=== PATIENT | female | born 1955 | race Caucasian/White ===

== ENCOUNTER → 2017-04-29 | Outpatient (CLI) | payer OTHER | LOC: CIMAGING 11:06 | PROVIDERS: ATTEND Family Medicine | DX: Z12.31 Encounter for screening mammogram for malignant neoplasm of breast (principal) | CPT/HCPCS: G0202 ==

== ENCOUNTER 2017-05-19 10:53 | Emergency (ER) | payer OTHER ==
[2017-05-19 11:14] VITALS: BP 141/72; PULSE 83; RESP 18; TEMP 98.2; O2SAT 94
--- NOTE | 2017-05-19 11:30 | EDPHY ---
H & P Time Seen by Provider: 05/19/17 11:05 HPI/ROS: CHIEF COMPLAINT: Left rib pain History by patient HISTORY OF PRESENT ILLNESS: 62-year-old woman with a history of fibromyalgia presents complaining of pain isolated to her left lower ribcage which she describes as intermittent and severe. It has been going on for at least 3 months and she saw her primary care physician for it 6 weeks ago was diagnosed with musculoskeletal pain. She returned today because pain seemed worse last night she had trouble sleeping. She took ibuprofen without relief. She says it hurts worse to lay on that left side and better when she gets up and moves around. She says sometimes she feels like it radiates down her left leg and causes some numbness and tingling in that left leg. She is not currently having the symptoms. It is not associated with any fever, chills, nausea or vomiting. She has been eating normally and having normal bowel movements in the pain is not related to bowel movements. She denies any urinary symptoms. The pain tends to be worse at night when she is lying still. It feels different than her fibromyalgia which she describes as pain all over and severe fatigue. She does note that she has been recently helping her father and mom movement although she has not been lifting heavy boxes she is moving lots of things around twisting side to side frequently. She is worried that it could be related to right ovarian cancer or something wrong with her spleen. REVIEW OF SYSTEMS: As in HPI, and all other systems reviewed and are negative Smoking Status: Never smoked Physical Exam: General Appearance: Alert, nontoxic-appearing, obese. Head: normocephalic, atraumatic Eyes: Pupils equal and round, reactive to light, no pallor or injection. Mouth: Mucous membranes moist. Respiratory: Normal, effort, lungs are clear to auscultation. No wheezes, rales or rhonchi. Cardiovascular: Regular rate and rhythm. S1, S2, no murmurs, gallops or rubs appreciated Chest: Positive point tenderness to left lowest ribs anteriorly Gastrointestinal: Abdomen is soft and nontender, no masses, bowel sounds normal. Back: No CVA tenderness, no bony tenderness Neurological: Awake, alert and oriented x 3, no pronator drift, normal gait, strength is 5/5 and equal bilaterally Skin: Warm and dry, no rashes. Musculoskeletal: No deformities or tenderness. Full range of motion of bilateral hips, pelvis is stable and nontender, Extremities: full range of motion, no edema, DP2+ bilat Psychiatric: Patient has normal affect, there is no agitation. Constitutional: Initial Vital Signs Temperature (C) 36.8 C 05/19/17 11:00 Heart Rate 83 05/19/17 11:00 Respiratory Rate 18 05/19/17 11:00 Blood Pressure 141/72 H 05/19/17 11:00 O2 Sat (%) 94 05/19/17 11:00 O2 Delivery Mode Room Air Allergies/Adverse Reactions: oxycodone HCl [From Percocet] Allergy (Verified 05/19/17 11:06) Home Medications: Medication Instructions Recorded Amitriptyline HCl [Elavil 50 mg 50 mg PO HS 05/31/12 (RX)] Estradiol [Vivelle-Dot 0.1MG (RX)] 0.1 mg TD SUTH@0800 05/31/12 traMADOL 11/30/13 Lidocaine 5% [Lidoderm 5% Patch 1 ea TD DAILY #30 patch 05/19/17 (*)] Naproxen 500 mg PO BID PRN #20 tablet 05/19/17 MDM/Departure - [facility] ED Course/Re-evaluation: 62-year-old woman presents with ongoing left rib pain and lower point tenderness on her lower ribs with a completely benign abdominal exam. Patient' s history physical consistent with musculoskeletal cause of her symptoms. Patient was reassured that there is no evidence of a problem with her spleen today or of cancer. Will give her trial topical lidocaine patches and Naprosyn since ibuprofen did not work for her. I am recommending follow up with primary care physician if her symptoms persist. Patient understands and is agreeable to this plan. - Depart Disposition: Home, Routine, Self-Care Clinical Impression: Rib pain on left side Condition: Good Instructions: Chest Wall Pain (ED) Additional Instructions: You were seen by Dr. Laura Dawson today. We have not found any serious cause for your symptoms today. Try naproxen twice daily and topical lidocaine patches for pain. Please follow-up with your primary care physician for re-evaluation in 1-2 weeks if your symptoms persist Return for any worsening or new concerns. Prescriptions: Lidocaine 5% [Lidoderm 5% Patch (*)] 1 ea TD DAILY #30 patch Naproxen 500 mg PO BID PRN #20 tablet PRN Reason: pain Referrals: Virginie Hanley MD [Primary Care Provider] - As per Instructions
== END 2017-05-19 11:39 | disposition home or self-care (01) ==
LOC: CED 10:53
DX: R07.81 Pleurodynia (principal)

== ENCOUNTER → 2017-05-28 | Outpatient (CLI) | payer OTHER | LOC: CIMAGING 09:02 | PROVIDERS: ATTEND Family Medicine | DX: R10.12 Left upper quadrant pain (principal); R74.8 Abnormal levels of other serum enzymes | CPT/HCPCS: 76700-PO ==

== ENCOUNTER 2018-03-16 09:39 | Observation (INO) | payer OTHER ==
--- NOTE | 2018-03-14 13:37 | GHP ---
CURRENT COMPLAINT: Left knee pain. HISTORY OF PRESENT ILLNESS: This patient is a 62-year-old female with a several year history of left knee pain worsening with use at which time, despite multiple conservative management, she would like surgery in order to resolve the problem. ALLERGIES: She lists no drug allergies. CURRENT MEDICATIONS: Include amitriptyline, duloxetine, tramadol. PRIOR MEDICAL PROBLEMS: Include migraines and osteopenia. PAST SURGICAL HISTORY: Prior surgeries include a . SOCIAL HISTORY: She has never been a smoker. She is a social drinker. PHYSICAL EXAMINATION: The patient continues to have an effusion to the knee. She is tender to the medial and lateral osteochondral junctions of the femur and tibia, as well as patellofemoral joint. She has gapping with valgus stress suggesting loss of cartilage height. X-ray exam reveals patellofemoral arthritis, as well as moderate arthritis to the medial and lateral compartments and calcific changes to the meniscus. ASSESSMENT AND PLAN: Patient is status post left knee osteoarthritis. PLAN: To take her to the operating room to undergo a left total knee replacement. /[id number]/MODL MTDD
[~2018-03-16 09:39] MED LIST: ROPIVACAINE 0.2% 80 MG, EPINEPHrine 0.2 MG, KETOROLAC TROMETHAMINE 30 MG, morphINE 10 M... IU ONE; TRANEXAMIC ACID 3,000 MG in NS (SYRINGE) 50 ML IRR ONE
[2018-03-16] MEDS ORDERED: THROMBIN (BOVINE) 5,000 UNIT VIAL TP ONE (09:57)
[2018-03-16] MEDS ORDERED: CALCIUM CHLORIDE 1 GM/10 ML INJ ONE (09:57)
[2018-03-16] MEDS ORDERED: BUPIVACAINE/EPI 0.5% 30 ML SDV ONE ×2 (09:57→12:35)
[2018-03-16] MEDS ORDERED: POLYMYXIN B SULFATE 500,000 UNIT/10 ML SYR IRR ONE (09:58)
[2018-03-16] MEDS ORDERED: TRANEXAMIC ACID 3,000 MG/50 ML BAG IRR ONE (09:58)
[2018-03-16] MEDS ORDERED: BACITRACIN 50,000 UNITS/10 ML SYR IRR ONE (09:58)
[2018-03-16] MEDS ORDERED: ceFAZolin 2 GM/DEXTROSE 100 ML IV ONE (10:03)
[2018-03-16] MEDS ORDERED: LR 1,000 ML IV SCH ×2 (10:03→13:00)
[2018-03-16] MEDS ORDERED: PREGABALIN 150 MG CAP PO ONE (10:03)
[2018-03-16] MEDS ORDERED: ACETAMINOPHEN 500 MG TAB PO ONE (10:03)
[2018-03-16] MEDS ORDERED: LR 1,000 ML IV ONE (10:04)
[2018-03-16] MEDS ORDERED: PROPOFOL/EMULSION 500 MG/50 ML BOTTLE IV ONE (10:53)
[2018-03-16] MEDS ORDERED: BUPIVACAINE 0.75% 10 ML SDV ONE (10:53)
[2018-03-16] MEDS ORDERED: fentaNYL 100 MCG/2 ML INJ ONE (10:53)
[2018-03-16] MEDS ORDERED: MIDAZOLAM 2 MG/2 ML VIAL IVP ONE (10:56)
--- NOTE | 2018-03-16 10:59 | PDANEPAE ---
ANE Past Medical History - Cardiovascular History Hx Hypertension: No Hx Arrhythmias: No Hx Chest Pain: No Hx Coronary Artery / Peripheral Vascular Disease: No Hx CHF / Valvular Disease: No Hx Palpitations: No - Pulmonary History Hx COPD: No Hx Asthma/Reactive Airway Disease: No Hx Recent Upper Respiratory Infection: No Hx Oxygen in Use at Home: No Hx Sleep Apnea: No Sleep Apnea Screening Result - Last Documented: Negative - Neurologic History Hx Cerebrovascular Accident: No Hx Seizures: No Hx Dementia: No - Endocrine History Hx Diabetes: No - Renal History Hx Renal Disorders: No - Liver History Hx Hepatic Disorders: No - Neurological & Psychiatric Hx Hx Neurological and Psychiatric Disorders: No - Cancer History Hx Cancer: No - Congenital Disorder History Hx Congenital Disorders: No - GI History Hx Gastrointestinal Disorders: No - Other Health History Other Health History: FIBROMYALGIA. OSTEOARTHRITIS - Chronic Pain History Chronic Pain: Yes (LT KNEE) - Surgical History Prior Surgeries: ANE Review of Systems Review of Systems: - Exercise capacity METS (RN): 4 METS ANE Patient History - Allergies Allergies/Adverse Reactions: oxycodone HCl [From Percocet] Allergy (Verified 03/16/18 10:17) ITCH - Home Medications Home medications: home medication list seen and reviewed Home Medications: Amitriptyline HCl [Amitriptyline HCl] 25 mg PO HS 03/10/18 [Last Taken 03/15/18 20:30] Cyanocobalamin [Vitamin B12 (*)] 1,000 mcg PO DAILY 03/10/18 [Last Taken ] DULoxetine [Cymbalta 60 MG (*)] 60 mg PO HS 03/10/18 [Last Taken 03/15/18 20:30] Multivitamins [Multivitamin (*)] 1 each PO DAILY 03/10/18 [Last Taken 03/14/18] [place]-3 Fatty Acids [Fish Oil 1000 mg (*)] 1,000 mg PO DAILY 03/10/18 [Last Taken 03/14/18] - NPO status NPO Since - Liquids (Date): 03/15/18 NPO Since - Liquids (Time): 20:00 NPO Since - Solids (Date): 03/15/18 NPO Since - Solids (Time): 20:00 - Anes Hx Anes Hx: no prior problems - Smoking Hx Smoking Status: Never smoked - Family Anes Hx Family Hx Anesthesia Complications: NEG ANE Labs/Vital Signs - Vital Signs Blood Pressure: 147/94 Heart Rate: 67 Respiratory Rate: 12 O2 Sat (%): 93 Height: 167.64 cm Weight: 77.111 kg ANE Physical Exam - Airway Neck exam: FROM Mallampati Score: Class 3 Mouth exam: normal dental/mouth exam - Pulmonary Pulmonary: no respiratory distress, no rales or rhonchi, clear to auscultation - Cardiovascular Cardiovascular: regular rate and rhythym, no murmur, rub, or gallop - ASA Status ASA Status: II ANE Anesthesia Plan Anesthesia Plan: spinal Regional Anesthesia: adductor canal FNB
--- NOTE | 2018-03-16 11:07 | PDHPUP ---
History & Physical Update H&P update statement: This history and physical update is based on an assessment of the patient which was completed after admission or registration (within 24 hours), but prior to the surgery/procedure. H&P update: H&P reviewed & patient examined, no change in patient's condition since H&P completed
[2018-03-16] MEDS ORDERED: DEXAMETHASONE 4 MG/ML VIAL ONE ×2 (11:08)
[2018-03-16] MEDS ORDERED: MIDAZOLAM 2 MG/2 ML VIAL ONE (11:20)
[2018-03-16] MEDS ORDERED: POLYETHYLENE GLYCOL 3350 17 GM PKT PO PRN (12:48)
[2018-03-16] MEDS ORDERED: diphenhydrAMINE 25 MG CAP PO PRN (12:48)
[2018-03-16] MEDS ORDERED: ONDANSETRON DISINTEGRATING 4 MG TAB PO PRN (12:48)
[2018-03-16] MEDS ORDERED: MAGNESIUM HYDROXIDE 30 ML UDCUP PO PRN (12:48)
[2018-03-16] MEDS ORDERED: METOCLOPRAMIDE 10 MG/2 ML VIAL IVP PRN (12:48)
[2018-03-16] MEDS ORDERED: ONDANSETRON 4 MG/2 ML VIAL IVP PRN ×2 (12:48→12:49)
[2018-03-16] MEDS ORDERED: DIPHENOXYLATE/ATROPINE LOMOTIL 1 TAB PO PRN (12:48)
[2018-03-16] MEDS ORDERED: PROMETHAZINE HCL 25 MG SUPPR PR PRN (12:48)
[2018-03-16] MEDS ORDERED: PROMETHAZINE HCL 25 MG/ML INJ IVP PRN ×2 (12:48→12:49)
[2018-03-16] MEDS ORDERED: BISACODYL 10 MG SUPP PR PRN (12:48)
[2018-03-16] MEDS ORDERED: LACTULOSE 20 GM/30 ML UDCUP PO PRN (12:48)
--- NOTE | 2018-03-16 12:48 | POSTOPPROG ---
Post Op Note Date of Operation: 03/16/18 Surgeon: Ekta Knight Stroke Coordinator: coltrain Anesthesia: Epidural, IV Sedation Pre-op Diagnosis: l knee oa Procedure: l tkr Inf/Abcess present in the surg proc area at time of surgery?: No Depth: Deep Incisional (Fascial) EBL: 100-500
[2018-03-16] MEDS ORDERED: fentaNYL 100 MCG/2 ML INJ IVP PRN (12:49)
[2018-03-16] MEDS ORDERED: ACETAMINOPHEN 500 MG TAB PO PRN (12:49)
[2018-03-16] MEDS ORDERED: HYDROCODONE/APAP 5/325 TAB PO PRN (12:49)
[2018-03-16] MEDS ORDERED: NALOXONE HCL 0.4 MG/ML INJ IVP PRN (12:49)
[2018-03-16] MEDS ORDERED: DIAZEPAM 5 MG/ML 1 ML SYR IVP PRN (12:49)
[2018-03-16] MEDS ORDERED: LR 500 ML IV PRN (12:49)
--- NOTE | 2018-03-16 13:40 | POSTANESTH ---
Post Anesthetic Evaluation Cardiovascular Status: Normal, Stable, Similar to Pre-Op Cond Respiratory Status: Normal, Stable, Similar to Pre-op Cond. Level of Consciousness/Mental Status: Can Participate in Eval, Mildly Sleepy, Arousable Pain Control: Adequate, Prn Tx Ordered Nausea/Vomiting Control: Adequate, Prn Tx Ordered Complications Possibly Related to Anesthesia: None Noted (L adductor canal block performed in PACU (20 ml 0.5% bupiv + epi).)
[2018-03-16] MEDS: ACETAMINOPHEN 325 MG TAB PO SCH (17:50)
[2018-03-16] MEDS: KETOROLAC 15 MG/1 ML SDV IVP SCH (17:50)
[2018-03-16] MEDS: traMADol 50 MG TAB PO SCH (18:27)
--- NOTE | 2018-03-16 19:35 | GOP ---
DATE OF OPERATION: 03/16/2018 SURGEON: Ekta Knight MD SALESPERSON NEW CARS: DORIE Moreno, LSA, whose presence was medically necessary. ANESTHESIA: Epidural plus IV sedation. PREOPERATIVE DIAGNOSIS: Left knee osteoarthritis. POSTOPERATIVE DIAGNOSIS: Left knee osteoarthritis. PROCEDURE PERFORMED: Left total knee arthroplasty. FINDINGS: INDICATIONS: This is a 62-year-old female with several-year history of left knee pain worsening with use with time despite multiple conservative measures. She wishes to have surgery in order to resolv e the problem. DESCRIPTION OF PROCEDURE: The patient was brought to the operating room after the left side had been identified as the correct side by the patient, nurse, and physician. Once in the operating room, bert singh was given epidural nerve block and IV sedation. She was then placed supine on the operating room t able. She had a tourniquet placed around the upper portion of left thigh, and the left lower extremi ty was sterilely prepped and draped in usual fashion using GSI solution. Once prepped and draped, mehran collins was exsanguinated, tourniquet inflated to 250 mmHg. Incision was made on the anterior portion of the knee 1 handbreadth above and below the patella, with sharp dissection carried down through the sk in and subcutaneous layers with bleeding controlled using electrocautery. A medial parapatellar inci brad was made through the extensor mechanism, with patella brought to the side but not everted. She had grade 4 chondral changes to the patella and the trochlea and grade 2-3 chondral changes noted in the medial and lateral compartments. The medial and lateral menisci and the ACL were removed. The k nee was brought to 90 degrees of flexion. A drill hole was made 1 cm anterior to the intercondylar n otch with an intramedullary guide placed within the femur and set at 5 degrees of valgus and set to r emove 10 mm of bone from the distal end of the femur. Once pinned into place, the intramedullary meño de was removed. An oscillating saw was used to remove the distal end of the femur. Once completed, osteotome was used to remove the cartilage from the posterior condyles of the femur. Sizing guide wa s put in place and noted a size 2 seemed to fit best. Therefore, a size 2, four-in-one cutting block was put into place with the anterior, posterior and chamfer cuts made. The size 2 trial was put int o place and noted to fit securely. I was able to achieve full extension, suggesting an adequate amou nt of bone had been removed. Lug holes were drilled for the femoral component. Femoral trials were removed. The knee was brought to full flexion. Tibia was subluxed anteriorly, and an external tibia l guide was put into place. It was set in neutral varus valgus and slight posterior slope and was se t to remove 2 mm of bone from the low side of the tibia. Once in place, it was pinned into place. T he guide was removed. A drop ethel was used to ensure proper alignment and the locking pin was put int o place. Oscillating saw was used to remove the proximal portion of the tibia. Trial tibia femur an d poly liner were put into place, and the knee was able to achieve full extension, suggesting an adeq uate amount of bone had been removed. Therefore, the knee was brought back to full flexion. The tri als were removed. Multiple trials were placed on the cut surface of the tibia. Noted a size 2 seeme d to fit best. Therefore, a size 2 tibial trial was set in slight external rotation and pinned into place. A keel punch passed through the trial after the trial then removed. A press fit drill guide was put into place and drill holes were made, at which point, a size 2 Triathlon Tritanium tibial com ponent was put in place and noted to fit securely, and a triathlon size 2 left cruciate retaining pre ss-fit component from [place] was put into place, and noted to fit securely. A trial liner was put i nside the tibial tray, and the knee was brought to full extension. The patella was then everted, and held in place with towel clamps. It was measured to be 16 mm in depth. Therefore, an oscillating sa w was used to remove the posterior portion of the patella, leaving 12 mm of bone. Multiple sizes wer e trialed on the patella and noted a 29 mm button seemed to fit best, and lug holes were drilled for a 29 mm patellar button. The 29 mm asymmetric Tritanium Triathlon patella from [place] was then put in place and noted to fit securely. Multiple trials were placed within the tibial tray and noted roseann t a 13 mm liner seemed to fit best. Therefore, a size 2, 13 mm polyethylene tray was placed within t he tibia. Once in place, the posterior capsule and periosteum of the femur and tibia were injected w ith joint cocktail and then tranexamic acid was irrigated through the wound. The tourniquet was rele ased at 33 minutes. Bleeding was controlled using electrocautery. The wound was then closed in laye rs to include 0 Vicryl suture in a [id number] type stitch for the extensor mechanism, with plasm a gel placed intra-articularly. 0 Vicryl and 2-0 Vicryl suture were used external to the extensor me chanism, with flat plasma gel placed externally and then a 3-0 V-Loc suture in a running subcuticular stitch was used to close the skin. 30 cc of Marcaine was infused around the actual incision, and th e wound was then dressed with Steri-Strips, Xeroform, 4 x 4, and Webril. Leg was completely undraped in the operating room, tourniquet removed from the thigh, and an ANUP wrap placed around the knee. T he patient was then transferred onto a stretcher, and sent to recovery room in good condition. TOURNIQUET TIME: 33 minutes. /[id number]/MODL
[2018-03-16] MEDS: ceFAZolin 2 GM/DEXTROSE 100 ML IV SCH (20:28)
[2018-03-16] MEDS: AMITRIPTYLINE HCL 25 MG TAB PO SCH (20:28)
[2018-03-16] MEDS: FAMOTIDINE 20 MG TAB PO SCH (20:29)
[2018-03-16] MEDS: SENNOSIDES/DOCUSATE SODIUM TAB PO SCH (20:29)
[2018-03-16] MEDS: DULoxetine 60 MG CAP PO SCH (20:29)
[2018-03-16] MEDS: TAPENTADOL HCL 50 MG TAB PO PRN (20:30)
[2018-03-16] MEDS: TEMAZEPAM 15 MG CAP PO PRN (22:04)
[2018-03-17] MEDS: KETOROLAC 15 MG/1 ML SDV IVP SCH ×3 (00:15→12:17)
[2018-03-17] MEDS: ACETAMINOPHEN 325 MG TAB PO SCH ×4 (00:15→18:04)
[2018-03-17] MEDS: traMADol 50 MG TAB PO SCH ×4 (00:16→18:05)
[2018-03-17] MEDS: ceFAZolin 2 GM/DEXTROSE 100 ML IV SCH (03:56)
[2018-03-17] MEDS: RIVAROXABAN 10 MG TAB PO SCH (08:35)
[2018-03-17] MEDS: SENNOSIDES/DOCUSATE SODIUM TAB PO SCH ×2 (08:35→21:02)
[2018-03-17] MEDS: TAPENTADOL HCL 50 MG TAB PO PRN (08:36)
[2018-03-17] MEDS: FAMOTIDINE 20 MG TAB PO SCH ×2 (08:36→21:02)
--- NOTE | 2018-03-17 10:25 | ASMTCMCOM ---
CM Note CM Note Notes: Patient is POD #1 L TKA and doing well. Pain management is her primary concern before discharge. Patient will go home with [facility] PT. She lives with her . Referral sent and received by [facility]. Date Signed: 03/17/2018 10:24 AM Electronically Signed By:Shayna Prasad RN
--- NOTE | 2018-03-17 14:53 | SOAPPROG ---
SOAP Progress Note Assessment/Plan: Assessment: Cierra is POD#1 left knee TKA. She is doing well with some continued pain. PE: Dressing is clean and dry Extensor mechanism intact NV intact LLE Calf is soft to compression without pain Plan: Plan to discharge today or tomorrow depending on patient pain. Continue Xarelto 10mg 1 po qd x 10 days. WBAT LLE. 03/17/18 14:46 Objective: Vital Signs Temp Pulse Resp BP Pulse Ox 37.0 C 83 16 126/52 H 94 03/17/18 11:21 03/17/18 11:21 03/17/18 11:21 03/17/18 11:21 03/17/18 11:21 Laboratory Results 03/17/18 04:26 03/16/18 03/17/18 03/18/18 05:59 05:59 05:59 Intake Total 1450 Output Total 2150 350 Balance -700 -350 ICD10 Worksheet Patient Problems: Problems Problem Status Onset Osteoarthritis of left knee Acute - ICD10 Problem Qualifiers (1) Osteoarthritis of left knee
[2018-03-17] MEDS: AMITRIPTYLINE HCL 25 MG TAB PO SCH (21:01)
[2018-03-17] MEDS: TEMAZEPAM 15 MG CAP PO PRN (21:02)
[2018-03-17] MEDS: DULoxetine 60 MG CAP PO SCH (21:02)
[2018-03-18] MEDS: ACETAMINOPHEN 325 MG TAB PO SCH ×4 (04:32→18:45)
[2018-03-18] MEDS: traMADol 50 MG TAB PO SCH ×4 (04:33→19:16)
[2018-03-18] MEDS: TAPENTADOL HCL 50 MG TAB PO PRN ×5 (04:43→23:07)
[2018-03-18] MEDS: SENNOSIDES/DOCUSATE SODIUM TAB PO SCH ×2 (08:23→20:12)
[2018-03-18] MEDS: FAMOTIDINE 20 MG TAB PO SCH ×2 (08:23→20:12)
[2018-03-18] MEDS: RIVAROXABAN 10 MG TAB PO SCH (08:23)
[2018-03-18] MEDS: CYCLOBENZAPRINE 10 MG TAB PO PRN ×2 (10:40→20:11)
--- NOTE | 2018-03-18 12:14 | SOAPPROG ---
SOAP Progress Note Assessment/Plan: Assessment: Cierra is POD#1 left knee TKA. She is doing well with some increased pain today. PE: Dressing is clean and dry Extensor mechanism intact NV intact LLE Calf is soft to compression without pain Plan: Plan to discharge today depending on patient pain. Continue Xarelto 10mg 1 po qd x 10 days. Prescription for Nucynta and Flexeril in the chart today. WBAT LLE. 03/18/18 12:13 03/18/18 13:15 Objective: Vital Signs Temp Pulse Resp BP Pulse Ox 37.1 C 65 95 H 135/73 H 97 03/18/18 07:39 03/18/18 07:39 03/18/18 07:39 03/18/18 07:39 03/17/18 23:14 Laboratory Results 03/18/18 04:17 03/17/18 03/18/18 03/19/18 05:59 05:59 05:59 Intake Total 1450 Output Total 2150 1400 Balance -700 -1400 ICD10 Worksheet Patient Problems: Problems Problem Status Onset Osteoarthritis of left knee Acute
--- NOTE | 2018-03-18 13:39 | PDIAF ---
- Diagnosis Diagnosis: left knee osteoarthritis Code Status: Full Code - Medication Management Discharge Medications: Medications to Continue on Transfer Amitriptyline HCl 25 mg PO HS 03/10/18 [Last Taken 03/15/18 20:30] Cyanocobalamin [Vitamin B12 (*)] 1,000 mcg PO DAILY 03/10/18 [Last Taken ] DULoxetine [Cymbalta 60 MG (*)] 60 mg PO HS 03/10/18 [Last Taken 03/15/18 20:30] Multivitamins [Multivitamin (*)] 1 each PO DAILY 03/10/18 [Last Taken 03/14/18] [place]-3 Fatty Acids [Fish Oil 1000 mg (*)] 1,000 mg PO DAILY 03/10/18 [Last Taken 03/14/18] Acetaminophen [Tylenol 325mg (*)] 650 mg PO Q6HRS tab 03/17/18 [Last Taken Unknown] Rivaroxaban [Xarelto 10mg (*)] 10 mg PO DAILY tab 03/17/18 [Last Taken Unknown] Tapentadol HCl [Nucynta 50 MG (*)] 50 mg PO Q4HRS PRN #30 tab 03/17/18 [Last Taken Unknown] Cyclobenzaprine [Flexeril 10 MG (*)] 10 mg PO Q8HRS PRN #40 tab 03/18/18 [Last Taken Unknown] Discharge Medications: Refer to the Discharge Home Medication list for PRN reason. - Orders Services needed: Physical Therapy Diet Recommendation: no restrictions on diet Diet Texture: Regular Texture Diet Additional Instructions: WBAT LLE. Prescriptions for pain medication in chart. Xarelto 1mg 1 qd x 10 days -- prescription sent to pharmacy. Follow up in 7-10 days for repeat evaluation - Follow Up Care Current Providers and Referrals: Virginie Hanley MD [Primary Care Provider] -
--- NOTE | 2018-03-18 15:26 | ASMTLACE ---
LACE Length of stay for Answers: 3 days current admission Acuity / Level of Answers: No Care: Did the patient have an inpatient admission? Comorbidities - select Answers: Opioid dependence all that apply / Chronic pain # of Emergency department Answers: 0 visits in the last 6 months Score: 7 Date Signed: 03/18/2018 03:25 PM Electronically Signed By:KESHAV Toribio
--- NOTE | 2018-03-18 15:27 | ASMTCMCOM ---
CM Note CM Note Notes: Pt medically stable for d/c with [facility] PT. Orders to be obtained via [employer]. Date Signed: 03/18/2018 03:26 PM Electronically Signed By:KESHAV Toribio
[2018-03-18] MEDS: KETOROLAC 15 MG/1 ML SDV IVP PRN (18:44)
[2018-03-18] MEDS: DULoxetine 60 MG CAP PO SCH (20:11)
[2018-03-18] MEDS: AMITRIPTYLINE HCL 25 MG TAB PO SCH (20:12)
[2018-03-19] MEDS: ACETAMINOPHEN 325 MG TAB PO SCH ×3 (00:20→12:38)
[2018-03-19] MEDS: traMADol 50 MG TAB PO SCH ×3 (01:21→12:00)
[2018-03-19] MEDS: CYCLOBENZAPRINE 10 MG TAB PO PRN (03:23)
[2018-03-19] MEDS: TAPENTADOL HCL 50 MG TAB PO PRN ×2 (06:26→11:24)
[2018-03-19 07:34] VITALS: BP 134/72
[2018-03-19] MEDS: FAMOTIDINE 20 MG TAB PO SCH (08:12)
[2018-03-19] MEDS: SENNOSIDES/DOCUSATE SODIUM TAB PO SCH (08:12)
[2018-03-19] MEDS: RIVAROXABAN 10 MG TAB PO SCH (08:12)
[2018-03-19] MEDS: KETOROLAC 15 MG/1 ML SDV IVP PRN (08:15)
--- NOTE | 2018-03-19 13:39 | ASDISCHSUM ---
Discharge Information Plan Status:Home with Home Health Medically Cleared to Leave: Discharge Date:03/19/2018 12:50 PM CM D/C Disposition:Home Health Service ADT D/C Disposition:Home, Routine, Self-Care Projected Discharge Date:03/17/2018 11:00 AM Transportation at D/C: Discharge Delay Reason: Follow-Up Date:03/17/2018 11:00 AM Discharge Slot: Final Diagnosis: Placement Information Referral Type:*Home Health Care Services Referral ID:[id number] Provider Name:[facility] Address 1:[address] [address] Address 2: City:[place] Selection Factors: State:[place] Patient Contact Information Contact Name:DANYELL Relationship: Address:[address] City:[place] Alternate Phone: State/Zip Code:[place] [address] Email: Financial Information Financial Class:HMO and PPO Plans Primary Plan Desc:[facility] Primary Plan Number:[id number] Secondary Plan Desc: Secondary Plan Number: Assessment Information LACE LACE Length of stay for Answers: 3 days current admission Acuity / Level of Answers: No Care: Did the patient have an inpatient admission? Comorbidities - select Answers: Opioid dependence all that apply / Chronic pain # of Emergency department Answers: 0 visits in the last 6 months Score: 7 Date Signed: 03/18/2018 03:25 PM Electronically Signed By:KESHAV Toribio [facility] CM Progress Note CM Note CM Note Notes: Patient is POD #1 L TKA and doing well. Pain management is her primary concern before discharge. Patient will go home with [facility] PT. She lives with her . Referral sent and received by [facility]. Date Signed: 03/17/2018 10:24 AM Electronically Signed By:Shayna Prasad RN [facility] CM Progress Note CM Note CM Note Notes: Pt medically stable for d/c with [facility] PT. Orders to be obtained via [employer]. Date Signed: 03/18/2018 03:26 PM Electronically Signed By:KESHAV Toribio Intervention Information
== END 2018-03-19 12:50 | disposition home health service (06) ==
LOC: F3N 09:39
PROVIDERS: ADMIT Orthopaedic Surgery; ATTEND Orthopaedic Surgery
PROC: 0SRD0JZ Replacement of Left Knee Joint with Synthetic Substitute, Open Approach (ICD-10-PCS; principal; 2018-03-16 11:00)
DX: M17.12 Unilateral primary osteoarthritis, left knee (principal)
CPT/HCPCS: 27447; 73560; 97116; 97161; 97165; G0378; J0171; J0690; J1100; J1885; J2250; J2270; J2704; J2795; J3010

== ENCOUNTER → 2018-05-25 | Outpatient (CLI) | payer OTHER | LOC: CIMAGING 10:22 | PROVIDERS: ATTEND Family Medicine | DX: Z12.31 Encounter for screening mammogram for malignant neoplasm of breast (principal); Z80.3 Family history of malignant neoplasm of breast ==